=== PATIENT | male | born 1995 | race Caucasian/White ===

== ENCOUNTER 2023-12-05 20:24 | Inpatient (IN) ==
--- NOTE | 2023-12-05 21:17 | DR.GENAD ---
HPI Time Seen Time Seen by Provider: 12/05/23 21:15 PCP Primary Care Physician: addis Complaint/Symptoms Chief Complaint Doctors Comments: Patient had not exercised in 10 yrs and went to the gym on 12/02/2023 and worked on his arms for 1 hr. He states that on Saturday he went back to the gym and worked on his legs for an hr. Patient also took whey protein on Saturday and Saturday. Patient states for the past 1.5 days he has had swelling in his arms and spasm that prevented him from extending his arms. Patient's urine was dark today and he decided to present for evaluation. Patient has had: nausea,hot flashes. Patient denies: palpitations, weakness, syncope, sob, chest pain. Chief Complaint:: Pt states he started having a change in urine color to light brown last night. Pt states he worked out on Saturday and hasn't in over a year and thinks that may have something to do with it. Pt states he thinks he's had a fever, but has not taken his temperature. Pt states he's had some nausea, but states it could be "nervous nausea". Denies painful urination, burning with urination or abdominal pain. Source History Provided: Patient Mode of Arrival Mode of Arrival: Ambulatory Timing Onset of Chief Complaint: 12/04/23 PMH PMH Past Medical History: No Past Surgical History: No Family History History of Family Medical Conditions: Yes Family Medical History: [place] and Hypertension Social History Alcohol Use: None Do you use any recreational Drugs:: No Lives With: Family Lives Where: Home Infectious screening Have you traveled outside the country in the last 6 months?: No Isolation: Standard ROS Review of Systems Constitutional: Diaphoresis Eyes: No Symptoms Reported ENTM: No Symptoms Reported Respiratoy: No Symptoms Reported Cardiovascular: No Symptoms Reported Gastrointestinal/Abdominal: Nausea Genitourinary: No Symptoms Reported Neurological: No Symptoms Reported Musculoskeletal: No Symptoms Reported Integumentary: No Symptoms Reported Hematologic/Lymphatic: No Symptoms Reported Endocrine: No Symptoms Reported Psychiatric: No Symptoms Reported All Other Systems: Reviewed and Negative PE Vital Signs Vitals: Vital Signs Temperature 98.0 F Temperature 97.7 F Pulse Rate [Left Radial] 84 Pulse Rate 101 Respiratory Rate 20 Respiratory Rate 17 Blood Pressure [Left Arm] 121/84 Blood Pressure 135/92 O2 Sat by Pulse Oximetry 98 O2 Sat by Pulse Oximetry 96 General Limitations: No Limitations General Appearance: Alert and In No Apparent Distress Head Head Exam: Normal Inspection Eyes Eye exam: Normal Appearance ENT ENT Exam: Normal Exam External Ear Exam: Normal External Inspection TM/Canal Exam: Bilateral: Normal Nose Exam: Normal Nose Exam Mouth Exam: Normal Inspection Throat Exam: Normal Inspection Neck Neck Exam: Normal Inspection Chest Chest Inspection: Normal Inspection Respiratory Respiratory Exam: Normal Lung Sounds Bilat Respiratory Exam: Bilateral: Clear to Auscultation Cardiovascular Cardiovascular Exam: Regular Rate and Normal Rhythm Abdominal Exam Abdominal Exam: Normal Inspection, Normal Bowel Sounds and Soft Extremities Extremities Exam: Edema (Bilateral biceps) Back Back Exam: Normal Inspection Neurologic Neurological Exam: Alert and Oriented X3 Psychiatric Psychiatric Exam: Normal Affect and Normal Mood Skin Skin Exam: Warm, Dry, Intact and Normal Color MDM Differential Diagnosis Differential Diagnosis: Rhabdomyolysis, electrolyte disorder, Renal Failure COURSE Treatment Treatment: Patient was placed in an exam room and IV access was initiated. Labs and tests were ordered and patient received IV normal saline 1L bolus. After the bolus patient was given normal saline at 250 MLS per hour IV. Patient's labs and tests revealed: CK 91,149, AST 1230, ALT 271,K 4.3,mg 2.2. 11:[address] Raygoza. Dr Raygoza has accepted Patient to his service. ROR Labs Reviewed Laboratory Results Reviewed?: Yes 12/05/23 21:24 12/05/23 21:24 Laboratory: WBC 8.0 X10^3/uL (3.6-10.0) 12/05/23 21:24 RBC 5.14 X10^6/uL (4.7-6.0) 12/05/23 21:24 Hgb 16.1 g/dL (13.5-18.0) 12/05/23 21:24 Hct 45.5 % (42.0-54.0) 12/05/23 21:24 MCV 88.4 fL (80.0-100.0) 12/05/23 21:24 MCH 31.2 pg (27.0-34.0) 12/05/23 21:24 MCHC 35.3 g/dL (33.0-35.0) H 12/05/23 21:24 RDW 13.6 % (11.6-16.5) 12/05/23 21:24 Plt Count 232 X10^3/uL (150.0-450.0) 12/05/23 21:24 MPV 7.0 fL (7.4-11.0) L 12/05/23 21:24 Neut % (Auto) 65.5 % (42.0-75.0) 12/05/23 21:24 Lymph % (Auto) 26.1 % (21.0-51.0) 12/05/23 21:24 [place] % (Auto) 6.1 % (0.0-13.0) 12/05/23 21:24 Eos % (Auto) 1.6 % (0.9-2.9) 12/05/23 21:24 Baso % (Auto) 0.7 % (0.2-1.0) 12/05/23 21:24 Neut # (Auto) 5.2 x10^3/uL (2.2-4.8) H 12/05/23 21:24 Lymph # (Auto) 2.1 X10^3/uL (1.3-2.9) 12/05/23 21:24 [place] # (Auto) 0.5 x10^3/uL (0.3-0.8) 12/05/23 21:24 Eos # (Auto) 0.1 x10^3/uL (0.0-0.2) 12/05/23 21:24 Baso # (Auto) 0.1 X10^3/uL (0.0-0.1) 12/05/23 21:24 Absolute Nucleated RBC 0.4 /100WBC 12/05/23 21:24 Sodium 138 mmol/L (136-145) 12/05/23 21:24 Corrected Sodium 138 mmol/L (136-145) 12/05/23 21:24 Potassium 4.3 mmol/L (3.5-5.1) 12/05/23 21:24 Chloride 99 mmol/L (98-107) 12/05/23 21:24 Carbon Dioxide 31.4 mmol/L (21-32) 12/05/23 21:24 BUN 13 mg/dL (7-18) 12/05/23 21:24 Creatinine 1.27 mg/dL (0.70-1.30) 12/05/23 21:24 Est GFR (MDRD) Af Amer > 60 (>60) 12/05/23 21:24 Est GFR (MDRD) Non-Af > 60 (>60) 12/05/23 21:24 Glucose 114 mg/dL (65-99) H 12/05/23 21:24 Calcium 9.2 mg/dL (8.5-10.1) 12/05/23 21:24 Corrected Calcium TNP 12/05/23 21:24 Magnesium 2.2 mg/dL (2.0-2.9) 12/05/23 21:24 Total Bilirubin 0.60 mg/dL (0.2-1.0) 12/05/23 21:24 AST 1230 Units/L (15-37) H 12/05/23 21:24 ALT 271 Units/L (12-78) H 12/05/23 21:24 Alkaline Phosphatase 48 Units/L (46-116) 12/05/23 21:24 Creatine Kinase 31646 Units/L (39-308) H 12/05/23 21:24 Total Protein 7.7 g/dL (6.4-8.2) 12/05/23 21:24 Albumin 4.2 g/dL (3.4-5.0) 12/05/23 21:24 Globulin 3.5 g/dL (2.5-4.5) 12/05/23 21:24 Albumin/Globulin Ratio 1.2 Ratio (1.1-2.1) 12/05/23 21:24 Specimen Type Clean catch urine 12/05/23 21:03 Urine Color Yellow (YELLOW) 12/05/23 21:03 Urine Appearance Clear (CLEAR) 12/05/23 21:03 Urine pH 6.0 (5.0 - 8.0) 12/05/23 21:03 Ur Specific [place] 1.015 (1.000-1.030) 12/05/23 21:03 Urine Protein 2+ (NEGATIVE) 12/05/23 21:03 Urine Glucose (UA) Negative (NEGATIVE) 12/05/23 21:03 Urine Ketones Negative (NEGATIVE) 12/05/23 21:03 Urine Blood 5+ (NEGATIVE) 12/05/23 21:03 Urine Nitrite Negative (NEGATIVE) 12/05/23 21:03 Urine Bilirubin Negative (NEGATIVE) 12/05/23 21:03 Urine Urobilinogen Normal (NORMAL) 12/05/23 21:03 Ur Leukocyte Esterase Negative (NEGATIVE) 12/05/23 21:03 Urine RBC 0-2 /HPF (0-3) 12/05/23 21:03 Urine WBC 0-2 /HPF (0-5) 12/05/23 21:03 Ur Squamous Epith Cells Rare /HPF (NEGATIVE) 12/05/23 21:03 Urine Bacteria Negative /HPF (NEGATIVE) 12/05/23 21:03 Ur Culture Indicated? No/not indicated 12/05/23 21:03 Salicylates < 2.8 mg/dL (2.8-20) L 12/05/23 22:28 Urine Opiates Screen Negative (NEG=<300) 12/05/23 21:03 Urine Methadone Screen Negative (NEG=<300) 12/05/23 21:03 Ur Barbiturates Screen Negative (NEG=<200) 12/05/23 21:03 Ur Phencyclidine Scrn Negative (NEG=<25) 12/05/23 21:03 Ur Amphetamines Screen Negative (NEG=<1000) 12/05/23 21:03 U Benzodiazepines Scrn Negative (NEG=<200) 12/05/23 21:03 Urine Cocaine Screen Negative (NEG=<300) 12/05/23 21:03 U Marijuana (THC) Screen Negative (NEG=<50) 12/05/23 21:03 Opioid Opioid Risk Tool Total: 0 Total Score Risk Category: Low Risk Copyright: Bernard predicting aberrant behaviors Discharge Plan Diagnosis Discharge Problem: Rhabdomyolysis, Elevated liver function tests Discharge Plan Patient Disposition: ADMITTED INPATIENT Condition: Stable Health Concerns: Post Hospitalization: new medications and changes needed to prevent readmission or further decline. Pt educated and given instructions on all concerns. Plan of Treatment: Continue with present treatment and follow up plan. Pt is to keep follow up appointment as instructed and take medications as ordered. Orders to Discharge Patient Discharge Orders: Transfer (Routine); Ordered 12/06/23 Ordered By: Kesha Dyson Follow ups/Referrals Follow ups/Referrals: NFD,None [Primary Care Provider] - 3 days Instructions Stand Alone Forms: Post Hospital Follow Up Care
[2023-12-05 21:19] LABS: BILIRUBIN,URINE NEGATIVE (NEGATIVE); BLOOD/HEMOGLOBIN,URINE 5+ (NEGATIVE); GLUCOSE, URINE NEGATIVE (NEGATIVE); KETONES,URINE NEGATIVE (NEGATIVE); LEUKOCYTE ESTERASE ,URINE NEGATIVE (NEGATIVE); NITRITES,URINE NEGATIVE (NEGATIVE); PROTEIN,URINE 2+ (NEGATIVE); UROBILINOGEN,URINE NORMAL (NORMAL)
[2023-12-05 21:28] LABS: APPEARANCE,URINE CLEAR (CLEAR); COLOR,URINE YELLOW (YELLOW)
[2023-12-05 21:29] LABS: BACTERIA,URINE NEGATIVE /HPF (NEGATIVE); RBC,URINE 0-2 /HPF (0-3); SQUAMOUS EPITHELIAL CELL,UR RARE /HPF (NEGATIVE)
[2023-12-05 21:32] LABS: HEMOGLOBIN 16.1 g/dL (13.5-18.0); MEAN CORPUSCULAR HGB CONC 35.3 g/dL (33.0-35.0)
[2023-12-05 21:35] LABS: BASOPHILS # (AUTO) 0.1 X10^3/uL (0.0-0.1); BASOPHILS % (AUTO) 0.7 % (0.2-1.0); EOSINOPHILS # (AUTO) 0.1 x10^3/uL (0.0-0.2); EOSINOPHILS % (AUTO) 1.6 % (0.9-2.9); HEMATOCRIT 45.5 % (42.0-54.0); LYMPHOCYTES # (AUTO) 2.1 X10^3/uL (1.3-2.9); LYMPHOCYTES % (AUTO) 26.1 % (21.0-51.0); MEAN CORPUSCULAR HEMOGLOBIN 31.2 pg (27.0-34.0); MEAN CORPUSCULAR VOLUME 88.4 fL (80.0-100.0); MONOCYTES # (AUTO) 0.5 x10^3/uL (0.3-0.8); MONOCYTES % (AUTO) 6.1 % (0.0-13.0); NEUTROPHILS # (AUTO) 5.2 x10^3/uL (2.2-4.8); NEUTROPHILS % (AUTO) 65.5 % (42.0-75.0); PLATELET COUNT 232 X10^3/uL (150.0-450.0); RED BLOOD COUNT 5.14 X10^6/uL (4.7-6.0); RED CELL DISTRIBUTION WIDTH 13.6 % (11.6-16.5)
[2023-12-05 21:53] LABS: ALANINE AMINOTRANSFERASE 271 Units/L (12-78); ALBUMIN 4.2 g/dL (3.4-5.0); ALKALINE PHOSPHATASE 48 Units/L (46-116); BLOOD UREA NITROGEN 13 mg/dL (7-18); CALCIUM 9.2 mg/dL (8.5-10.1); CARBON DIOXIDE 31.4 mmol/L (21-32); CHLORIDE 99 mmol/L (98-107); COR NA(FOR HYPERGLY) 138 mmol/L (136-145); CREATININE 1.27 mg/dL (0.70-1.30); GLUCOSE 114 mg/dL (65-99); POTASSIUM 4.3 mmol/L (3.5-5.1); SODIUM 138 mmol/L (136-145); TOTAL PROTEIN 7.7 g/dL (6.4-8.2); eGFR NON BLACK RACES > 60 (>60)
[2023-12-05 21:57] LABS: ASPARTATE AMINO TRANSFERASE 1230 Units/L (15-37)
[2023-12-05] MEDS ORDERED: NS 1,000 ML IV 1,000 ML ONE (22:25)
[2023-12-05] MEDS: NS 1,000 ML IV 1,000 ML IV ONE (22:27)
[2023-12-05 23:26] LABS: CREATINE KINASE 91149 Units/L (39-308)
[2023-12-05] MEDS: NS 1,000 ML IV 1,000 ML IV STA (23:31)
[2023-12-06] MEDS ORDERED: REGLAN INJ 10 MG VIAL IVP PRN (00:45)
[2023-12-06 02:32] VITALS: BMI 25.0
[2023-12-06 05:04] LABS: BILIRUBIN,URINE NEGATIVE (NEGATIVE); BLOOD/HEMOGLOBIN,URINE 5+ (NEGATIVE); GLUCOSE, URINE NEGATIVE (NEGATIVE); KETONES,URINE NEGATIVE (NEGATIVE); LEUKOCYTE ESTERASE ,URINE NEGATIVE (NEGATIVE); NITRITES,URINE NEGATIVE (NEGATIVE); PH,URINE 6.5 (5.0 - 8.0); PROTEIN,URINE 1+ (NEGATIVE); UROBILINOGEN,URINE NORMAL (NORMAL)
[2023-12-06 05:14] LABS: APPEARANCE,URINE CLEAR (CLEAR); BACTERIA,URINE NEGATIVE /HPF (NEGATIVE); COLOR,URINE PALE YELLOW (YELLOW); RBC,URINE 0-2 /HPF (0-3); SQUAMOUS EPITHELIAL CELL,UR RARE /HPF (NEGATIVE)
[2023-12-06 06:23] LABS: BASOPHILS % (AUTO) 0.5 % (0.2-1.0); EOSINOPHILS # (AUTO) 0.2 x10^3/uL (0.0-0.2); EOSINOPHILS % (AUTO) 3.6 % (0.9-2.9); HEMATOCRIT 44.3 % (42.0-54.0); HEMOGLOBIN 15.4 g/dL (13.5-18.0); LYMPHOCYTES # (AUTO) 2.3 X10^3/uL (1.3-2.9); LYMPHOCYTES % (AUTO) 36.2 % (21.0-51.0); MEAN CORPUSCULAR HGB CONC 34.8 g/dL (33.0-35.0); MEAN CORPUSCULAR VOLUME 89.1 fL (80.0-100.0); MEAN PLATELET VOLUME 7.4 fL (7.4-11.0); MONOCYTES # (AUTO) 0.4 x10^3/uL (0.3-0.8); MONOCYTES % (AUTO) 6.8 % (0.0-13.0); NEUTROPHILS # (AUTO) 3.4 x10^3/uL (2.2-4.8); NEUTROPHILS % (AUTO) 52.9 % (42.0-75.0); PLATELET COUNT 222 X10^3/uL (150.0-450.0); RED BLOOD COUNT 4.97 X10^6/uL (4.7-6.0); RED CELL DISTRIBUTION WIDTH 13.7 % (11.6-16.5); WHITE BLOOD COUNT 6.4 X10^3/uL (3.6-10.0)
[2023-12-06 06:56] LABS: ALANINE AMINOTRANSFERASE 256 Units/L (12-78); ALBUMIN 3.8 g/dL (3.4-5.0); ALKALINE PHOSPHATASE 43 Units/L (46-116); ASPARTATE AMINO TRANSFERASE 978 Units/L (15-37); BLOOD UREA NITROGEN 10 mg/dL (7-18); CARBON DIOXIDE 31.5 mmol/L (21-32); CHLORIDE 101 mmol/L (98-107); GLUCOSE 96 mg/dL (65-99); POTASSIUM 4.6 mmol/L (3.5-5.1); SODIUM 139 mmol/L (136-145); TOTAL PROTEIN 7.2 g/dL (6.4-8.2); eGFR NON BLACK RACES > 60 (>60)
[2023-12-06 08:26] LABS: CREATINE KINASE 99184 Units/L (39-308)
[2023-12-06] MEDS: LR 1,000 ML IV 1,000 ML IV SCH (09:30)
--- NOTE | 2023-12-06 14:29 | DR.H&P ---
H&P History & Physical for Day of: H&P Date: 12/06/23 Chief Complaint Chief Complaint: Change in urine color History of Present Illness History of Present Illness: This is a pleasant 28-year-old white male who presented to the [facility] emergency department last night after he saw that his urine had started turning a light brown in color. He states that he had been working out at the gym earlier in the week or 2 days in a row. He had not worked out previously in 10 years he reports. On December 02, 2023, he worked on his arms for an hour, and the following day, he went back to the gym and worked on his legs for an hour. The patient also states he took whey protein on Saturday and Saturday. The patient reports that the day after he had worked out the second time, his arms started getting sore and looked like they were swelling. He had developed some nausea with hot flashes also. He denied palpitations, weakness, syncope, shortness of breath, and chest pain. He also denies painful urination and burning with urination and abdominal pain. The patient was found to have a CK level just above 91,000. I was called by the ER physician and the patient was discussed with me. We elected to go ahead and admit the patient to the hospital with continued IV fluid hydration for his rhabdomyolysis. This morning's repeat of his CK level shows that he has gone up to over 99,000. We are changing his IV fluid to lactated Ringer's at 200 cc an hour this morning. Repeat a CK level again tomorrow morning. Family History Family Medical History: [place] and Hypertension Social History Does patient currently use any type of tobacco product: No Does any household member use tobacco: No Alcohol Use: None Drug Use: None Medications Home Medications: Home Medications Medication Instructions Recorded Confirmed Type NK 12/06/23 12/06/23 History Allergies Allergies Allergy/AdvReac Type Severity Reaction Status Date / Time No Known Allergies Allergy Verified 12/06/23 04:24 Labs 12/06/23 05:40 12/06/23 05:40 Labs: Laboratory WBC 6.4 X10^3/uL (3.6-10.0) 12/06/23 05:40 RBC 4.97 X10^6/uL (4.7-6.0) 12/06/23 05:40 Hgb 15.4 g/dL (13.5-18.0) 12/06/23 05:40 Hct 44.3 % (42.0-54.0) 12/06/23 05:40 MCV 89.1 fL (80.0-100.0) 12/06/23 05:40 MCH 31.0 pg (27.0-34.0) 12/06/23 05:40 MCHC 34.8 g/dL (33.0-35.0) 12/06/23 05:40 RDW 13.7 % (11.6-16.5) 12/06/23 05:40 Plt Count 222 X10^3/uL (150.0-450.0) 12/06/23 05:40 MPV 7.4 fL (7.4-11.0) 12/06/23 05:40 Neut % (Auto) 52.9 % (42.0-75.0) 12/06/23 05:40 Lymph % (Auto) 36.2 % (21.0-51.0) 12/06/23 05:40 [place] % (Auto) 6.8 % (0.0-13.0) 12/06/23 05:40 Eos % (Auto) 3.6 % (0.9-2.9) H 12/06/23 05:40 Baso % (Auto) 0.5 % (0.2-1.0) 12/06/23 05:40 Neut # (Auto) 3.4 x10^3/uL (2.2-4.8) 12/06/23 05:40 Lymph # (Auto) 2.3 X10^3/uL (1.3-2.9) 12/06/23 05:40 [place] # (Auto) 0.4 x10^3/uL (0.3-0.8) 12/06/23 05:40 Eos # (Auto) 0.2 x10^3/uL (0.0-0.2) 12/06/23 05:40 Baso # (Auto) 0.0 X10^3/uL (0.0-0.1) 12/06/23 05:40 Absolute Nucleated RBC 0.1 /100WBC 12/06/23 05:40 Sodium 139 mmol/L (136-145) 12/06/23 05:40 Corrected Sodium TNP 12/06/23 05:40 Potassium 4.6 mmol/L (3.5-5.1) 12/06/23 05:40 Chloride 101 mmol/L (98-107) 12/06/23 05:40 Carbon Dioxide 31.5 mmol/L (21-32) 12/06/23 05:40 BUN 10 mg/dL (7-18) 12/06/23 05:40 Creatinine 1.10 mg/dL (0.70-1.30) 12/06/23 05:40 Est GFR (MDRD) Af Amer > 60 (>60) 12/06/23 05:40 Est GFR (MDRD) Non-Af > 60 (>60) 12/06/23 05:40 Glucose 96 mg/dL (65-99) 12/06/23 05:40 Calcium 9.0 mg/dL (8.5-10.1) 12/06/23 05:40 Corrected Calcium TNP 12/06/23 05:40 Magnesium 2.2 mg/dL (2.0-2.9) 12/05/23 21:24 Total Bilirubin 0.80 mg/dL (0.2-1.0) 12/06/23 05:40 AST 978 Units/L (15-37) H 12/06/23 05:40 ALT 256 Units/L (12-78) H 12/06/23 05:40 Alkaline Phosphatase 43 Units/L (46-116) L 12/06/23 05:40 Creatine Kinase 94927 Units/L (39-308) H 12/06/23 05:40 Total Protein 7.2 g/dL (6.4-8.2) 12/06/23 05:40 Albumin 3.8 g/dL (3.4-5.0) 12/06/23 05:40 Globulin 3.4 g/dL (2.5-4.5) 12/06/23 05:40 Albumin/Globulin Ratio 1.1 Ratio (1.1-2.1) 12/06/23 05:40 Specimen Type Random urine 12/06/23 04:02 Urine Color Pale yellow (YELLOW) 12/06/23 04:02 Urine Appearance Clear (CLEAR) 12/06/23 04:02 Urine pH 6.5 (5.0 - 8.0) 12/06/23 04:02 Ur Specific [place] 1.010 (1.000-1.030) 12/06/23 04:02 Urine Protein 1+ (NEGATIVE) 12/06/23 04:02 Urine Glucose (UA) Negative (NEGATIVE) 12/06/23 04:02 Urine Ketones Negative (NEGATIVE) 12/06/23 04:02 Urine Blood 5+ (NEGATIVE) 12/06/23 04:02 Urine Nitrite Negative (NEGATIVE) 12/06/23 04:02 Urine Bilirubin Negative (NEGATIVE) 12/06/23 04:02 Urine Urobilinogen Normal (NORMAL) 12/06/23 04:02 Ur Leukocyte Esterase Negative (NEGATIVE) 12/06/23 04:02 Urine RBC 0-2 /HPF (0-3) 12/06/23 04:02 Urine WBC 0-2 /HPF (0-5) 12/06/23 04:02 Ur Squamous Epith Cells Rare /HPF (NEGATIVE) 12/06/23 04:02 Urine Bacteria Negative /HPF (NEGATIVE) 12/06/23 04:02 Ur Culture Indicated? No/not indicated 12/06/23 04:02 Salicylates < 2.8 mg/dL (2.8-20) L 12/05/23 22:28 Urine Opiates Screen Negative (NEG=<300) 12/05/23 21:03 Urine Methadone Screen Negative (NEG=<300) 12/05/23 21:03 Ur Barbiturates Screen Negative (NEG=<200) 12/05/23 21:03 Ur Phencyclidine Scrn Negative (NEG=<25) 12/05/23 21:03 Ur Amphetamines Screen Negative (NEG=<1000) 12/05/23 21:03 U Benzodiazepines Scrn Negative (NEG=<200) 12/05/23 21:03 Urine Cocaine Screen Negative (NEG=<300) 12/05/23 21:03 U Marijuana (THC) Screen Negative (NEG=<50) 12/05/23 21:03 Review of Systems Constitutional: Fever, Sweats and Weakness Eyes: No Symptoms Reported ENT: No Symptoms Reported Respiratory: No Symptoms Reported Cardiovascular: No Symptoms Reported Gastrointestinal: Nausea Genitourinary: Other (Light brown-colored urine); denies Dysuria or Hematuria Musculoskeletal: Arm Pain Skin: No Symptoms Reported Neurological: No Symptoms Reported Physical Exam Vital Signs: Vital Signs Temperature 97.9 F Temperature 97.6 F Pulse Rate [Left Radial] 88 Pulse Rate [Left Radial] 91 Respiratory Rate 18 Respiratory Rate 18 Blood Pressure [Left Arm] 116/72 Blood Pressure [Left Arm] 125/85 O2 Sat by Pulse Oximetry 97 O2 Sat by Pulse Oximetry 95 Oriented: Normal, Time, Person and Place Eyes: Normal Ear: Normal Nose: Normal Throat: Normal Respiratory: Clear Throughout Cardiovascular: Normal : Normal Auscultation: Bowel Sounds: Normal Palpation: Normal Tenderness: Normal Skin: Normal Musculoskeletal: Right, Left, Arm (Bilateral biceps) and Tender Psychiatric: Normal Mood Description: Calm Affect: Normal Speech Pattern: Clear and Appropriate Assessment/Plan (1) Rhabdomyolysis: Status: Acute Plan: Lactated Ringer's at 200 cc an hour. Check daily CK levels. Follow LFTs to make sure they normalize. It is known that rhabdomyolysis can cause elevated LFTs especially AST greater than ALT. The patient does demonstrate this during this hospitalization. (2) Elevated liver function tests: Status: Acute Plan: Since admission, the patient's LFTs have improved. We will continue to follow them daily until they normalize. I see that the emergency room physician has ordered a hepatitis profile, and we will follow up with the results as well. Review H&P Reviewed: Yes Patient was examined?: Yes
[2023-12-07 06:40] LABS: BASOPHILS # (AUTO) 0.1 X10^3/uL (0.0-0.1); BASOPHILS % (AUTO) 1.1 % (0.2-1.0); EOSINOPHILS # (AUTO) 0.3 x10^3/uL (0.0-0.2); EOSINOPHILS % (AUTO) 4.6 % (0.9-2.9); HEMATOCRIT 42.9 % (42.0-54.0); HEMOGLOBIN 15.1 g/dL (13.5-18.0); LYMPHOCYTES # (AUTO) 2.3 X10^3/uL (1.3-2.9); LYMPHOCYTES % (AUTO) 35.5 % (21.0-51.0); MEAN CORPUSCULAR HEMOGLOBIN 31.3 pg (27.0-34.0); MEAN CORPUSCULAR HGB CONC 35.2 g/dL (33.0-35.0); MEAN PLATELET VOLUME 7.1 fL (7.4-11.0); MONOCYTES # (AUTO) 0.5 x10^3/uL (0.3-0.8); NEUTROPHILS # (AUTO) 3.3 x10^3/uL (2.2-4.8); NEUTROPHILS % (AUTO) 50.8 % (42.0-75.0); PLATELET COUNT 205 X10^3/uL (150.0-450.0); RED BLOOD COUNT 4.82 X10^6/uL (4.7-6.0); RED CELL DISTRIBUTION WIDTH 13.3 % (11.6-16.5); WHITE BLOOD COUNT 6.6 X10^3/uL (3.6-10.0)
[2023-12-07 06:55] LABS: ALANINE AMINOTRANSFERASE 232 Units/L (12-78); ALBUMIN 3.7 g/dL (3.4-5.0); ALKALINE PHOSPHATASE 39 Units/L (46-116); ASPARTATE AMINO TRANSFERASE 661 Units/L (15-37); BLOOD UREA NITROGEN 11 mg/dL (7-18); CALCIUM 9.2 mg/dL (8.5-10.1); CARBON DIOXIDE 34.2 mmol/L (21-32); CHLORIDE 102 mmol/L (98-107); CREATININE 1.14 mg/dL (0.70-1.30); GLUCOSE 95 mg/dL (65-99); POTASSIUM 4.4 mmol/L (3.5-5.1); SODIUM 139 mmol/L (136-145); eGFR NON BLACK RACES > 60 (>60)
[2023-12-07 07:36] LABS: CREATINE KINASE 48715 Units/L (39-308)
[2023-12-07] MEDS ORDERED: CONSULT PHARMACY - POTASSIUM & MAGNESIUM XX SCH (09:00)
[2023-12-07] MEDS: MAG-OX TAB PO SCH (09:59)
--- NOTE | 2023-12-07 12:31 | PCM.PROG ---
Progress Note Progress Note for Day of Date of Exam: 12/07/23 Subjective Subjective: Patient seen at bedside, no acute events overnight. He is currently admitted for rhabdomyolysis and transaminitis. He states he feels better. He has been ambulating in the room. He is able to move his arms and legs. His CK levels are trending down. Denies any nausea or vomiting. Labs and imaging reviewed: -Total CK 48,715 AST: 661 ALT: 232 magnesium 1.7 Plan: Continue aggressive hydration with LR, replace electrolytes as per protocol. Monitor a.m. labs and imaging. Encourage ambulation as tolerated. Past Medical Family Social History Allergies: Allergies No Known Allergies Allergy (Verified 12/06/23 04:24) Vital Signs and I&O's Vital Signs: Vital Signs Temperature 97.2 F Pulse Rate [Left Radial] 82 Respiratory Rate 17 Blood Pressure [Right Arm] 124/66 O2 Sat by Pulse Oximetry 98 Intake and Output: Intake & Output 12/04/23 12/05/23 12/06/23 12/07/23 23:59 23:59 23:59 23:59 Intake Total 5191 / 5191 1463 / 1463 Balance 5191 / 5191 1463 / 1463 Physical Exam Oriented: Normal, Time, Person and Place Eyes: Normal Ear: Normal Nose: Normal Throat: Normal Respiratory: Normal Cardiovascular: Normal : Normal Auscultation: Bowel Sounds: Normal Palpation: Normal Tenderness: Normal Skin: Normal Musculoskeletal: Right, Left, Arm (Bilateral biceps) and Tender Psychiatric: Normal Mood Description: Calm Affect: Normal Speech Pattern: Clear and Appropriate Laboratory and Diagnostics 12/07/23 06:09 12/07/23 06:09 Labs: Laboratory WBC 6.6 X10^3/uL (3.6-10.0) 12/07/23 06:09 RBC 4.82 X10^6/uL (4.7-6.0) 12/07/23 06:09 Hgb 15.1 g/dL (13.5-18.0) 12/07/23 06:09 Hct 42.9 % (42.0-54.0) 12/07/23 06:09 MCV 89.0 fL (80.0-100.0) 12/07/23 06:09 MCH 31.3 pg (27.0-34.0) 12/07/23 06:09 MCHC 35.2 g/dL (33.0-35.0) H 12/07/23 06:09 RDW 13.3 % (11.6-16.5) 12/07/23 06:09 Plt Count 205 X10^3/uL (150.0-450.0) 12/07/23 06:09 MPV 7.1 fL (7.4-11.0) L 12/07/23 06:09 Neut % (Auto) 50.8 % (42.0-75.0) 12/07/23 06:09 Lymph % (Auto) 35.5 % (21.0-51.0) 12/07/23 06:09 [place] % (Auto) 8.0 % (0.0-13.0) 12/07/23 06:09 Eos % (Auto) 4.6 % (0.9-2.9) H 12/07/23 06:09 Baso % (Auto) 1.1 % (0.2-1.0) H 12/07/23 06:09 Neut # (Auto) 3.3 x10^3/uL (2.2-4.8) 12/07/23 06:09 Lymph # (Auto) 2.3 X10^3/uL (1.3-2.9) 12/07/23 06:09 [place] # (Auto) 0.5 x10^3/uL (0.3-0.8) 12/07/23 06:09 Eos # (Auto) 0.3 x10^3/uL (0.0-0.2) H 12/07/23 06:09 Baso # (Auto) 0.1 X10^3/uL (0.0-0.1) 12/07/23 06:09 Absolute Nucleated RBC 0.2 /100WBC 12/07/23 06:09 Sodium 139 mmol/L (136-145) 12/07/23 06:09 Corrected Sodium TNP 12/07/23 06:09 Potassium 4.4 mmol/L (3.5-5.1) 12/07/23 06:09 Chloride 102 mmol/L (98-107) 12/07/23 06:09 Carbon Dioxide 34.2 mmol/L (21-32) H 12/07/23 06:09 BUN 11 mg/dL (7-18) 12/07/23 06:09 Creatinine 1.14 mg/dL (0.70-1.30) 12/07/23 06:09 Est GFR (MDRD) Af Amer > 60 (>60) 12/07/23 06:09 Est GFR (MDRD) Non-Af > 60 (>60) 12/07/23 06:09 Glucose 95 mg/dL (65-99) 12/07/23 06:09 Calcium 9.2 mg/dL (8.5-10.1) 12/07/23 06:09 Corrected Calcium TNP 12/07/23 06:09 Magnesium 1.7 mg/dL (2.0-2.9) L 12/07/23 06:09 Total Bilirubin 0.60 mg/dL (0.2-1.0) 12/07/23 06:09 AST 661 Units/L (15-37) H 12/07/23 06:09 ALT 232 Units/L (12-78) H 12/07/23 06:09 Alkaline Phosphatase 39 Units/L (46-116) L 12/07/23 06:09 Creatine Kinase 16617 Units/L (39-308) H 12/07/23 06:09 Total Protein 7.0 g/dL (6.4-8.2) 12/07/23 06:09 Albumin 3.7 g/dL (3.4-5.0) 12/07/23 06:09 Globulin 3.3 g/dL (2.5-4.5) 12/07/23 06:09 Albumin/Globulin Ratio 1.1 Ratio (1.1-2.1) 12/07/23 06:09 Specimen Type Random urine 12/06/23 04:02 Urine Color Pale yellow (YELLOW) 12/06/23 04:02 Urine Appearance Clear (CLEAR) 12/06/23 04:02 Urine pH 6.5 (5.0 - 8.0) 12/06/23 04:02 Ur Specific [place] 1.010 (1.000-1.030) 12/06/23 04:02 Urine Protein 1+ (NEGATIVE) 12/06/23 04:02 Urine Glucose (UA) Negative (NEGATIVE) 12/06/23 04:02 Urine Ketones Negative (NEGATIVE) 12/06/23 04:02 Urine Blood 5+ (NEGATIVE) 12/06/23 04:02 Urine Nitrite Negative (NEGATIVE) 12/06/23 04:02 Urine Bilirubin Negative (NEGATIVE) 12/06/23 04:02 Urine Urobilinogen Normal (NORMAL) 12/06/23 04:02 Ur Leukocyte Esterase Negative (NEGATIVE) 12/06/23 04:02 Urine RBC 0-2 /HPF (0-3) 12/06/23 04:02 Urine WBC 0-2 /HPF (0-5) 12/06/23 04:02 Ur Squamous Epith Cells Rare /HPF (NEGATIVE) 12/06/23 04:02 Urine Bacteria Negative /HPF (NEGATIVE) 12/06/23 04:02 Ur Culture Indicated? No/not indicated 12/06/23 04:02 Salicylates < 2.8 mg/dL (2.8-20) L 12/05/23 22:28 Urine Opiates Screen Negative (NEG=<300) 12/05/23 21:03 Urine Methadone Screen Negative (NEG=<300) 12/05/23 21:03 Ur Barbiturates Screen Negative (NEG=<200) 12/05/23 21:03 Ur Phencyclidine Scrn Negative (NEG=<25) 12/05/23 21:03 Ur Amphetamines Screen Negative (NEG=<1000) 12/05/23 21:03 U Benzodiazepines Scrn Negative (NEG=<200) 12/05/23 21:03 Urine Cocaine Screen Negative (NEG=<300) 12/05/23 21:03 U Marijuana (THC) Screen Negative (NEG=<50) 12/05/23 21:03 Plan (1) Rhabdomyolysis: Status: Acute Qualifiers: Rhabdomyolysis type: non-traumatic Qualified Code(s): M62.82 - Rhabdomyolysis (2) Elevated liver function tests: Status: Acute
[2023-12-07] MEDS: NS 1,000 ML IV 1,000 ML ONE (22:48)
[2023-12-08 06:41] LABS: BASOPHILS # (AUTO) 0.1 X10^3/uL (0.0-0.1); BASOPHILS % (AUTO) 1.9 % (0.2-1.0); EOSINOPHILS # (AUTO) 0.3 x10^3/uL (0.0-0.2); EOSINOPHILS % (AUTO) 4.3 % (0.9-2.9); HEMATOCRIT 40.8 % (42.0-54.0); HEMOGLOBIN 14.5 g/dL (13.5-18.0); LYMPHOCYTES # (AUTO) 1.6 X10^3/uL (1.3-2.9); LYMPHOCYTES % (AUTO) 27.8 % (21.0-51.0); MEAN CORPUSCULAR HEMOGLOBIN 31.5 pg (27.0-34.0); MEAN CORPUSCULAR HGB CONC 35.7 g/dL (33.0-35.0); MEAN CORPUSCULAR VOLUME 88.3 fL (80.0-100.0); MEAN PLATELET VOLUME 7.1 fL (7.4-11.0); MONOCYTES # (AUTO) 0.4 x10^3/uL (0.3-0.8); MONOCYTES % (AUTO) 6.6 % (0.0-13.0); NEUTROPHILS # (AUTO) 3.5 x10^3/uL (2.2-4.8); NEUTROPHILS % (AUTO) 59.4 % (42.0-75.0); PLATELET COUNT 205 X10^3/uL (150.0-450.0); RED BLOOD COUNT 4.62 X10^6/uL (4.7-6.0); RED CELL DISTRIBUTION WIDTH 13.9 % (11.6-16.5); WHITE BLOOD COUNT 5.8 X10^3/uL (3.6-10.0)
[2023-12-08 07:06] LABS: ALANINE AMINOTRANSFERASE 224 Units/L (12-78); ALBUMIN 3.5 g/dL (3.4-5.0); ALKALINE PHOSPHATASE 43 Units/L (46-116); ASPARTATE AMINO TRANSFERASE 528 Units/L (15-37); BLOOD UREA NITROGEN 12 mg/dL (7-18); CALCIUM 8.8 mg/dL (8.5-10.1); CARBON DIOXIDE 32.2 mmol/L (21-32); CHLORIDE 103 mmol/L (98-107); CREATININE 1.07 mg/dL (0.70-1.30); GLUCOSE 90 mg/dL (65-99); POTASSIUM 3.9 mmol/L (3.5-5.1); SODIUM 140 mmol/L (136-145); TOTAL PROTEIN 6.7 g/dL (6.4-8.2); eGFR NON BLACK RACES > 60 (>60)
[2023-12-08 07:25] LABS: CREATINE KINASE 37354 Units/L (39-308)
[2023-12-08 07:54] LABS: HEPATITIS B SURFACE ANTIGEN Negative (Negative)
--- NOTE | 2023-12-08 11:45 | PCM.PROG ---
Progress Note Progress Note for Day of Date of Exam: 12/08/23 Subjective Subjective: Patient seen at bedside, no acute events overnight. He is currently admitted for rhabdomyolysis and transaminitis. He states he feels better. He has been ambulating in the room. He is able to move his arms and legs. His CK levels are trending down. Denies any nausea or vomiting. Labs and imaging reviewed: -Total CK 37 354 AST: 528 ALT: 224 magnesium 2.0 Plan: Continue aggressive hydration with LR, Will give 1 L bolus now. Replace electrolytes as per protocol. Monitor a.m. labs and imaging. Encourage ambulation as tolerated. Past Medical Family Social History Allergies: Allergies No Known Allergies Allergy (Verified 12/06/23 04:24) Vital Signs and I&O's Vital Signs: Vital Signs Temperature 97.7 F Temperature 97.6 F Pulse Rate [Left Radial] 70 Pulse Rate [Left Radial] 80 Respiratory Rate 20 Respiratory Rate 18 Blood Pressure [Right Arm] 117/68 Blood Pressure [Right Arm] 122/65 O2 Sat by Pulse Oximetry 98 O2 Sat by Pulse Oximetry 97 Intake and Output: Intake & Output 12/05/23 12/06/23 12/07/23 12/08/23 23:59 23:59 23:59 23:59 Intake Total 5191 / 5191 7265 / 7265 2113 Balance 5191 / 5191 7265 / 7265 2113 Physical Exam Oriented: Normal, Time, Person and Place Eyes: Normal Ear: Normal Nose: Normal Throat: Normal Respiratory: Normal Cardiovascular: Normal Auscultation: Bowel Sounds: Normal Palpation: Normal Tenderness: Normal Skin: Normal Musculoskeletal: Right, Left, Arm (Bilateral biceps) and Tender Psychiatric: Normal Mood Description: Calm Affect: Normal Speech Pattern: Clear and Appropriate Laboratory and Diagnostics 12/08/23 06:10 12/08/23 06:10 Labs: Laboratory WBC 5.8 X10^3/uL (3.6-10.0) 12/08/23 06:10 RBC 4.62 X10^6/uL (4.7-6.0) L 12/08/23 06:10 Hgb 14.5 g/dL (13.5-18.0) 12/08/23 06:10 Hct 40.8 % (42.0-54.0) L 12/08/23 06:10 MCV 88.3 fL (80.0-100.0) 12/08/23 06:10 MCH 31.5 pg (27.0-34.0) 12/08/23 06:10 MCHC 35.7 g/dL (33.0-35.0) H 12/08/23 06:10 RDW 13.9 % (11.6-16.5) 12/08/23 06:10 Plt Count 205 X10^3/uL (150.0-450.0) 12/08/23 06:10 MPV 7.1 fL (7.4-11.0) L 12/08/23 06:10 Neut % (Auto) 59.4 % (42.0-75.0) 12/08/23 06:10 Lymph % (Auto) 27.8 % (21.0-51.0) 12/08/23 06:10 [place] % (Auto) 6.6 % (0.0-13.0) 12/08/23 06:10 Eos % (Auto) 4.3 % (0.9-2.9) H 12/08/23 06:10 Baso % (Auto) 1.9 % (0.2-1.0) H 12/08/23 06:10 Neut # (Auto) 3.5 x10^3/uL (2.2-4.8) 12/08/23 06:10 Lymph # (Auto) 1.6 X10^3/uL (1.3-2.9) 12/08/23 06:10 [place] # (Auto) 0.4 x10^3/uL (0.3-0.8) 12/08/23 06:10 Eos # (Auto) 0.3 x10^3/uL (0.0-0.2) H 12/08/23 06:10 Baso # (Auto) 0.1 X10^3/uL (0.0-0.1) 12/08/23 06:10 Absolute Nucleated RBC 0.1 /100WBC 12/08/23 06:10 Sodium 140 mmol/L (136-145) 12/08/23 06:10 Corrected Sodium TNP 12/08/23 06:10 Potassium 3.9 mmol/L (3.5-5.1) 12/08/23 06:10 Chloride 103 mmol/L (98-107) 12/08/23 06:10 Carbon Dioxide 32.2 mmol/L (21-32) H 12/08/23 06:10 BUN 12 mg/dL (7-18) 12/08/23 06:10 Creatinine 1.07 mg/dL (0.70-1.30) 12/08/23 06:10 Est GFR (MDRD) Af Amer > 60 (>60) 12/08/23 06:10 Est GFR (MDRD) Non-Af > 60 (>60) 12/08/23 06:10 Glucose 90 mg/dL (65-99) 12/08/23 06:10 Calcium 8.8 mg/dL (8.5-10.1) 12/08/23 06:10 Corrected Calcium TNP 12/08/23 06:10 Magnesium 2.0 mg/dL (2.0-2.9) 12/08/23 06:10 Total Bilirubin 0.50 mg/dL (0.2-1.0) 12/08/23 06:10 AST 528 Units/L (15-37) H 12/08/23 06:10 ALT 224 Units/L (12-78) H 12/08/23 06:10 Alkaline Phosphatase 43 Units/L (46-116) L 12/08/23 06:10 Creatine Kinase 78759 Units/L (39-308) H 12/08/23 06:10 Total Protein 6.7 g/dL (6.4-8.2) 12/08/23 06:10 Albumin 3.5 g/dL (3.4-5.0) 12/08/23 06:10 Globulin 3.2 g/dL (2.5-4.5) 12/08/23 06:10 Albumin/Globulin Ratio 1.1 Ratio (1.1-2.1) 12/08/23 06:10 Specimen Type Random urine 12/06/23 04:02 Urine Color Pale yellow (YELLOW) 12/06/23 04:02 Urine Appearance Clear (CLEAR) 12/06/23 04:02 Urine pH 6.5 (5.0 - 8.0) 12/06/23 04:02 Ur Specific [place] 1.010 (1.000-1.030) 12/06/23 04:02 Urine Protein 1+ (NEGATIVE) 12/06/23 04:02 Urine Glucose (UA) Negative (NEGATIVE) 12/06/23 04:02 Urine Ketones Negative (NEGATIVE) 12/06/23 04:02 Urine Blood 5+ (NEGATIVE) 12/06/23 04:02 Urine Nitrite Negative (NEGATIVE) 12/06/23 04:02 Urine Bilirubin Negative (NEGATIVE) 12/06/23 04:02 Urine Urobilinogen Normal (NORMAL) 12/06/23 04:02 Ur Leukocyte Esterase Negative (NEGATIVE) 12/06/23 04:02 Urine RBC 0-2 /HPF (0-3) 12/06/23 04:02 Urine WBC 0-2 /HPF (0-5) 12/06/23 04:02 Ur Squamous Epith Cells Rare /HPF (NEGATIVE) 12/06/23 04:02 Urine Bacteria Negative /HPF (NEGATIVE) 12/06/23 04:02 Ur Culture Indicated? No/not indicated 12/06/23 04:02 Salicylates < 2.8 mg/dL (2.8-20) L 12/05/23 22:28 Urine Opiates Screen Negative (NEG=<300) 12/05/23 21:03 Urine Methadone Screen Negative (NEG=<300) 12/05/23 21:03 Ur Barbiturates Screen Negative (NEG=<200) 12/05/23 21:03 Ur Phencyclidine Scrn Negative (NEG=<25) 12/05/23 21:03 Ur Amphetamines Screen Negative (NEG=<1000) 12/05/23 21:03 U Benzodiazepines Scrn Negative (NEG=<200) 12/05/23 21:03 Urine Cocaine Screen Negative (NEG=<300) 12/05/23 21:03 U Marijuana (THC) Screen Negative (NEG=<50) 12/05/23 21:03 Hepatitis A IgM Ab Negative (Negative) 12/05/23 22:28 Hep Bs Antigen Negative (Negative) 12/05/23 22:28 Hep B Core IgM Ab Negative (Negative) 12/05/23 22:28 Hepatitis C Ab Index <0.02 IV 12/05/23 22:28 Hep C RIBA Interpret Negative (Negative) 12/05/23 22:28 Hepatitis Interpret See note 12/05/23 22:28 Plan (1) Rhabdomyolysis: Status: Acute Qualifiers: Rhabdomyolysis type: non-traumatic Qualified Code(s): M62.82 - Rhabdomyolysis Plan: Lactated Ringer's at 200 cc an hour. Check daily CK levels. Follow LFTs to make sure they normalize. It is known that rhabdomyolysis can cause elevated LFTs especially AST greater than ALT. The patient does demonstrate this during this hospitalization. (2) Elevated liver function tests: Status: Acute Plan: Since admission, the patient's LFTs have improved. We will continue to follow them daily until they normalize. I see that the emergency room physician has ordered a hepatitis profile, and we will follow up with the results as well. (3) Hypomagnesemia: Status: Acute
[2023-12-08] MEDS: LR 1,000 ML IV 1,000 ML IV ONE (12:14)
[2023-12-09 06:14] LABS: MEAN CORPUSCULAR HEMOGLOBIN 31.3 pg (27.0-34.0); WHITE BLOOD COUNT 6.2 X10^3/uL (3.6-10.0)
[2023-12-09 06:24] LABS: BASOPHILS % (AUTO) 0.7 % (0.2-1.0); EOSINOPHILS # (AUTO) 0.3 x10^3/uL (0.0-0.2); HEMOGLOBIN 15.1 g/dL (13.5-18.0); LYMPHOCYTES % (AUTO) 33.1 % (21.0-51.0); MEAN CORPUSCULAR HGB CONC 35.1 g/dL (33.0-35.0); MEAN CORPUSCULAR VOLUME 89.2 fL (80.0-100.0); MONOCYTES # (AUTO) 0.5 x10^3/uL (0.3-0.8); MONOCYTES % (AUTO) 7.3 % (0.0-13.0); NEUTROPHILS # (AUTO) 3.3 x10^3/uL (2.2-4.8); NEUTROPHILS % (AUTO) 53.9 % (42.0-75.0); PLATELET COUNT 213 X10^3/uL (150.0-450.0); RED BLOOD COUNT 4.83 X10^6/uL (4.7-6.0); RED CELL DISTRIBUTION WIDTH 13.5 % (11.6-16.5)
[2023-12-09 06:36] LABS: ALANINE AMINOTRANSFERASE 201 Units/L (12-78); ALBUMIN 3.5 g/dL (3.4-5.0); ALKALINE PHOSPHATASE 44 Units/L (46-116); ASPARTATE AMINO TRANSFERASE 335 Units/L (15-37); BLOOD UREA NITROGEN 8 mg/dL (7-18); CALCIUM 8.9 mg/dL (8.5-10.1); CHLORIDE 102 mmol/L (98-107); CREATININE 1.09 mg/dL (0.70-1.30); GLUCOSE 90 mg/dL (65-99); POTASSIUM 4.1 mmol/L (3.5-5.1); SODIUM 140 mmol/L (136-145); TOTAL PROTEIN 6.7 g/dL (6.4-8.2); eGFR NON BLACK RACES > 60 (>60)
--- NOTE | 2023-12-09 19:37 | PCM.PROG ---
Progress Note Progress Note for Day of Date of Exam: 12/09/23 Subjective Subjective: The patient had a good weekend and a good night again. He is still being treated for rhabdomyolysis. His CK level is now at 16,000. He has trended down since admission from a maximum of 99,000. We will continue IV fluid at this time and repeat his LFTs and CK level again tomorrow. His LFTs were elevated upon admission, but they are still trending down. Past Medical Family Social History Allergies: Allergies No Known Allergies Allergy (Verified 12/06/23 04:24) Review of Systems ROS: No change since H&P Vital Signs and I&O's Vital Signs: Vital Signs Temperature 97.1 F Temperature 97.6 F Pulse Rate [Left Radial] 55 Pulse Rate [Left Radial] 90 Respiratory Rate 19 Respiratory Rate 18 Blood Pressure [Right Arm] 119/60 Blood Pressure [Right Arm] 123/73 O2 Sat by Pulse Oximetry 96 O2 Sat by Pulse Oximetry 93 Intake and Output: Intake & Output 12/07/23 12/08/23 12/09/23 12/10/23 11:59 11:59 11:59 11:59 Intake Total 6644 / 6644 7916 / 7916 8593 / 8593 500 / 500 Balance 6644 / 6644 7916 / 7916 8593 / 8593 500 / 500 Physical Exam Oriented: Normal, Time, Person and Place Eyes: Normal Ear: Normal Nose: Normal Throat: Normal Respiratory: Normal Cardiovascular: Normal : Normal Auscultation: Bowel Sounds: Normal Tenderness: Normal Skin: Normal Musculoskeletal: Right, Left, Arm (Bilateral biceps) and Tender Psychiatric: Normal Mood Description: Calm Affect: Normal Speech Pattern: Clear and Appropriate Laboratory and Diagnostics 12/09/23 05:54 12/09/23 05:54 Labs: Laboratory WBC 6.2 X10^3/uL (3.6-10.0) 12/09/23 05:54 RBC 4.83 X10^6/uL (4.7-6.0) 12/09/23 05:54 Hgb 15.1 g/dL (13.5-18.0) 12/09/23 05:54 Hct 43.0 % (42.0-54.0) 12/09/23 05:54 MCV 89.2 fL (80.0-100.0) 12/09/23 05:54 MCH 31.3 pg (27.0-34.0) 12/09/23 05:54 MCHC 35.1 g/dL (33.0-35.0) H 12/09/23 05:54 RDW 13.5 % (11.6-16.5) 12/09/23 05:54 Plt Count 213 X10^3/uL (150.0-450.0) 12/09/23 05:54 MPV 7.0 fL (7.4-11.0) L 12/09/23 05:54 Neut % (Auto) 53.9 % (42.0-75.0) 12/09/23 05:54 Lymph % (Auto) 33.1 % (21.0-51.0) 12/09/23 05:54 [place] % (Auto) 7.3 % (0.0-13.0) 12/09/23 05:54 Eos % (Auto) 5.0 % (0.9-2.9) H 12/09/23 05:54 Baso % (Auto) 0.7 % (0.2-1.0) 12/09/23 05:54 Neut # (Auto) 3.3 x10^3/uL (2.2-4.8) 12/09/23 05:54 Lymph # (Auto) 2.0 X10^3/uL (1.3-2.9) 12/09/23 05:54 [place] # (Auto) 0.5 x10^3/uL (0.3-0.8) 12/09/23 05:54 Eos # (Auto) 0.3 x10^3/uL (0.0-0.2) H 12/09/23 05:54 Baso # (Auto) 0.0 X10^3/uL (0.0-0.1) 12/09/23 05:54 Absolute Nucleated RBC 0.1 /100WBC 12/09/23 05:54 Sodium 140 mmol/L (136-145) 12/09/23 05:54 Corrected Sodium TNP 12/09/23 05:54 Potassium 4.1 mmol/L (3.5-5.1) 12/09/23 05:54 Chloride 102 mmol/L (98-107) 12/09/23 05:54 Carbon Dioxide 32.0 mmol/L (21-32) 12/09/23 05:54 BUN 8 mg/dL (7-18) 12/09/23 05:54 Creatinine 1.09 mg/dL (0.70-1.30) 12/09/23 05:54 Est GFR (MDRD) Af Amer > 60 (>60) 12/09/23 05:54 Est GFR (MDRD) Non-Af > 60 (>60) 12/09/23 05:54 Glucose 90 mg/dL (65-99) 12/09/23 05:54 Calcium 8.9 mg/dL (8.5-10.1) 12/09/23 05:54 Corrected Calcium TNP 12/09/23 05:54 Magnesium 2.0 mg/dL (2.0-2.9) 12/08/23 06:10 Total Bilirubin 0.40 mg/dL (0.2-1.0) 12/09/23 05:54 AST 335 Units/L (15-37) H 12/09/23 05:54 ALT 201 Units/L (12-78) H 12/09/23 05:54 Alkaline Phosphatase 44 Units/L (46-116) L 12/09/23 05:54 Creatine Kinase 97441 Units/L (39-308) H 12/09/23 05:54 Total Protein 6.7 g/dL (6.4-8.2) 12/09/23 05:54 Albumin 3.5 g/dL (3.4-5.0) 12/09/23 05:54 Globulin 3.2 g/dL (2.5-4.5) 12/09/23 05:54 Albumin/Globulin Ratio 1.1 Ratio (1.1-2.1) 12/09/23 05:54 Specimen Type Random urine 12/06/23 04:02 Urine Color Pale yellow (YELLOW) 12/06/23 04:02 Urine Appearance Clear (CLEAR) 12/06/23 04:02 Urine pH 6.5 (5.0 - 8.0) 12/06/23 04:02 Ur Specific [place] 1.010 (1.000-1.030) 12/06/23 04:02 Urine Protein 1+ (NEGATIVE) 12/06/23 04:02 Urine Glucose (UA) Negative (NEGATIVE) 12/06/23 04:02 Urine Ketones Negative (NEGATIVE) 12/06/23 04:02 Urine Blood 5+ (NEGATIVE) 12/06/23 04:02 Urine Nitrite Negative (NEGATIVE) 12/06/23 04:02 Urine Bilirubin Negative (NEGATIVE) 12/06/23 04:02 Urine Urobilinogen Normal (NORMAL) 12/06/23 04:02 Ur Leukocyte Esterase Negative (NEGATIVE) 12/06/23 04:02 Urine RBC 0-2 /HPF (0-3) 12/06/23 04:02 Urine WBC 0-2 /HPF (0-5) 12/06/23 04:02 Ur Squamous Epith Cells Rare /HPF (NEGATIVE) 12/06/23 04:02 Urine Bacteria Negative /HPF (NEGATIVE) 12/06/23 04:02 Ur Culture Indicated? No/not indicated 12/06/23 04:02 Salicylates < 2.8 mg/dL (2.8-20) L 12/05/23 22:28 Urine Opiates Screen Negative (NEG=<300) 12/05/23 21:03 Urine Methadone Screen Negative (NEG=<300) 12/05/23 21:03 Ur Barbiturates Screen Negative (NEG=<200) 12/05/23 21:03 Ur Phencyclidine Scrn Negative (NEG=<25) 12/05/23 21:03 Ur Amphetamines Screen Negative (NEG=<1000) 12/05/23 21:03 U Benzodiazepines Scrn Negative (NEG=<200) 12/05/23 21:03 Urine Cocaine Screen Negative (NEG=<300) 12/05/23 21:03 U Marijuana (THC) Screen Negative (NEG=<50) 12/05/23 21:03 Hepatitis A IgM Ab Negative (Negative) 12/05/23 22:28 Hep Bs Antigen Negative (Negative) 12/05/23 22:28 Hep B Core IgM Ab Negative (Negative) 12/05/23 22:28 Hepatitis C Ab Index <0.02 IV 12/05/23 22:28 Hep C RIBA Interpret Negative (Negative) 12/05/23 22:28 Hepatitis Interpret See note 12/05/23 22:28 Plan (1) Rhabdomyolysis: Status: Acute Qualifiers: Rhabdomyolysis type: non-traumatic Qualified Code(s): M62.82 - Rhabdomyolysis Plan: Lactated Ringer's at 200 cc an hour. Check daily CK levels. Follow LFTs to make sure they normalize. It is known that rhabdomyolysis can cause elevated LFTs especially AST greater than ALT. The patient does demonstrate this during this hospitalization. (2) Elevated liver function tests: Status: Acute Plan: Since admission, the patient's LFTs have improved. We will continue to follow them daily until they normalize. I see that the emergency room physician has ordered a hepatitis profile, and we will follow up with the results as well. (3) Hypomagnesemia: Status: Acute
[2023-12-10 05:32] LABS: ALANINE AMINOTRANSFERASE 170 Units/L (12-78); ALBUMIN 3.4 g/dL (3.4-5.0); ALKALINE PHOSPHATASE 38 Units/L (46-116); ASPARTATE AMINO TRANSFERASE 211 Units/L (15-37); BLOOD UREA NITROGEN 9 mg/dL (7-18); CALCIUM 8.8 mg/dL (8.5-10.1); CARBON DIOXIDE 32.2 mmol/L (21-32); CHLORIDE 103 mmol/L (98-107); CREATININE 1.11 mg/dL (0.70-1.30); GLUCOSE 91 mg/dL (65-99); POTASSIUM 4.3 mmol/L (3.5-5.1); SODIUM 139 mmol/L (136-145); TOTAL PROTEIN 6.4 g/dL (6.4-8.2); eGFR NON BLACK RACES > 60 (>60)
[2023-12-10 05:48] LABS: CREATINE KINASE 9190 Units/L (39-308)
--- NOTE | 2023-12-10 16:46 | PCM.PROG ---
Progress Note Progress Note for Day of Date of Exam: 12/10/23 Subjective Subjective: The patient is feeling well this morning. His CK is down to just over 9000 today. He was greater than 16,000 yesterday so he is improving daily. We plan on keeping him another 24 hours. I suspect that his CK will be low enough tomorrow morning for us to transfer home. The patient has no complaints today, and he is eating well and ambulating without any trouble. His soreness in his biceps is decreasing and I talked to him about make sure when he gets back to working out to go back into it slowly and not overdo it. The patient understands this. The patient's LFTs continue to decrease also however they are still elevated so we will continue to monitor him as well. Repeat CMP with CK tomorrow. Continue lactated Ringer's IV solution at this time. Past Medical Family Social History Allergies: Allergies No Known Allergies Allergy (Verified 12/06/23 04:24) Review of Systems ROS: No change since H&P Vital Signs and I&O's Vital Signs: Vital Signs Temperature 97.8 F Pulse Rate [Left Radial] 72 Respiratory Rate 18 Blood Pressure [Left Arm] 118/72 O2 Sat by Pulse Oximetry 98 Intake and Output: Intake & Output 12/08/23 12/09/23 12/10/23 12/11/23 11:59 11:59 11:59 11:59 Intake Total 7916 / 7916 9393 / 9393 5724 / 5724 640 / 640 Balance 7916 / 7916 9393 / 9393 5724 / 5724 640 / 640 Physical Exam Oriented: Normal, Time, Person and Place Eyes: Normal Ear: Normal Nose: Normal Throat: Normal Respiratory: Normal Cardiovascular: Normal : Normal Auscultation: Bowel Sounds: Normal Tenderness: Normal Skin: Normal Musculoskeletal: Right, Left, Arm (Bilateral biceps) and Tender Psychiatric: Normal Mood Description: Calm Affect: Normal Speech Pattern: Clear and Appropriate Laboratory and Diagnostics 12/09/23 05:54 12/10/23 04:43 Labs: Laboratory WBC 6.2 X10^3/uL (3.6-10.0) 12/09/23 05:54 RBC 4.83 X10^6/uL (4.7-6.0) 12/09/23 05:54 Hgb 15.1 g/dL (13.5-18.0) 12/09/23 05:54 Hct 43.0 % (42.0-54.0) 12/09/23 05:54 MCV 89.2 fL (80.0-100.0) 12/09/23 05:54 MCH 31.3 pg (27.0-34.0) 12/09/23 05:54 MCHC 35.1 g/dL (33.0-35.0) H 12/09/23 05:54 RDW 13.5 % (11.6-16.5) 12/09/23 05:54 Plt Count 213 X10^3/uL (150.0-450.0) 12/09/23 05:54 MPV 7.0 fL (7.4-11.0) L 12/09/23 05:54 Neut % (Auto) 53.9 % (42.0-75.0) 12/09/23 05:54 Lymph % (Auto) 33.1 % (21.0-51.0) 12/09/23 05:54 [place] % (Auto) 7.3 % (0.0-13.0) 12/09/23 05:54 Eos % (Auto) 5.0 % (0.9-2.9) H 12/09/23 05:54 Baso % (Auto) 0.7 % (0.2-1.0) 12/09/23 05:54 Neut # (Auto) 3.3 x10^3/uL (2.2-4.8) 12/09/23 05:54 Lymph # (Auto) 2.0 X10^3/uL (1.3-2.9) 12/09/23 05:54 [place] # (Auto) 0.5 x10^3/uL (0.3-0.8) 12/09/23 05:54 Eos # (Auto) 0.3 x10^3/uL (0.0-0.2) H 12/09/23 05:54 Baso # (Auto) 0.0 X10^3/uL (0.0-0.1) 12/09/23 05:54 Absolute Nucleated RBC 0.1 /100WBC 12/09/23 05:54 Sodium 139 mmol/L (136-145) 12/10/23 04:43 Corrected Sodium TNP 12/10/23 04:43 Potassium 4.3 mmol/L (3.5-5.1) 12/10/23 04:43 Chloride 103 mmol/L (98-107) 12/10/23 04:43 Carbon Dioxide 32.2 mmol/L (21-32) H 12/10/23 04:43 BUN 9 mg/dL (7-18) 12/10/23 04:43 Creatinine 1.11 mg/dL (0.70-1.30) 12/10/23 04:43 Est GFR (MDRD) Af Amer > 60 (>60) 12/10/23 04:43 Est GFR (MDRD) Non-Af > 60 (>60) 12/10/23 04:43 Glucose 91 mg/dL (65-99) 12/10/23 04:43 Calcium 8.8 mg/dL (8.5-10.1) 12/10/23 04:43 Corrected Calcium TNP 12/10/23 04:43 Magnesium 2.0 mg/dL (2.0-2.9) 12/08/23 06:10 Total Bilirubin 0.40 mg/dL (0.2-1.0) 12/10/23 04:43 AST 211 Units/L (15-37) H 12/10/23 04:43 ALT 170 Units/L (12-78) H 12/10/23 04:43 Alkaline Phosphatase 38 Units/L (46-116) L 12/10/23 04:43 Creatine Kinase 9190 Units/L (39-308) H 12/10/23 04:43 Total Protein 6.4 g/dL (6.4-8.2) 12/10/23 04:43 Albumin 3.4 g/dL (3.4-5.0) 12/10/23 04:43 Globulin 3.0 g/dL (2.5-4.5) 12/10/23 04:43 Albumin/Globulin Ratio 1.1 Ratio (1.1-2.1) 12/10/23 04:43 Specimen Type Random urine 12/06/23 04:02 Urine Color Pale yellow (YELLOW) 12/06/23 04:02 Urine Appearance Clear (CLEAR) 12/06/23 04:02 Urine pH 6.5 (5.0 - 8.0) 12/06/23 04:02 Ur Specific [place] 1.010 (1.000-1.030) 12/06/23 04:02 Urine Protein 1+ (NEGATIVE) 12/06/23 04:02 Urine Glucose (UA) Negative (NEGATIVE) 12/06/23 04:02 Urine Ketones Negative (NEGATIVE) 12/06/23 04:02 Urine Blood 5+ (NEGATIVE) 12/06/23 04:02 Urine Nitrite Negative (NEGATIVE) 12/06/23 04:02 Urine Bilirubin Negative (NEGATIVE) 12/06/23 04:02 Urine Urobilinogen Normal (NORMAL) 12/06/23 04:02 Ur Leukocyte Esterase Negative (NEGATIVE) 12/06/23 04:02 Urine RBC 0-2 /HPF (0-3) 12/06/23 04:02 Urine WBC 0-2 /HPF (0-5) 12/06/23 04:02 Ur Squamous Epith Cells Rare /HPF (NEGATIVE) 12/06/23 04:02 Urine Bacteria Negative /HPF (NEGATIVE) 12/06/23 04:02 Ur Culture Indicated? No/not indicated 12/06/23 04:02 Salicylates < 2.8 mg/dL (2.8-20) L 12/05/23 22:28 Urine Opiates Screen Negative (NEG=<300) 12/05/23 21:03 Urine Methadone Screen Negative (NEG=<300) 12/05/23 21:03 Ur Barbiturates Screen Negative (NEG=<200) 12/05/23 21:03 Ur Phencyclidine Scrn Negative (NEG=<25) 12/05/23 21:03 Ur Amphetamines Screen Negative (NEG=<1000) 12/05/23 21:03 U Benzodiazepines Scrn Negative (NEG=<200) 12/05/23 21:03 Urine Cocaine Screen Negative (NEG=<300) 12/05/23 21:03 U Marijuana (THC) Screen Negative (NEG=<50) 12/05/23 21:03 Hepatitis A IgM Ab Negative (Negative) 12/05/23 22:28 Hep Bs Antigen Negative (Negative) 12/05/23 22:28 Hep B Core IgM Ab Negative (Negative) 12/05/23 22:28 Hepatitis C Ab Index <0.02 IV 12/05/23 22:28 Hep C RIBA Interpret Negative (Negative) 12/05/23 22:28 Hepatitis Interpret See note 12/05/23 22:28 Plan (1) Rhabdomyolysis: Status: Acute Qualifiers: Rhabdomyolysis type: non-traumatic Qualified Code(s): M62.82 - Rhabdomyolysis Narrative Support Text: Improving Plan: Lactated Ringer's at 200 cc an hour. Check daily CK levels. Follow LFTs to make sure they normalize. It is known that rhabdomyolysis can cause elevated LFTs especially AST greater than ALT. The patient does demonstrate this during this hospitalization. (2) Elevated liver function tests: Status: Acute Narrative Support Text: Improving daily Plan: Since admission, the patient's LFTs have improved. We will continue to follow them daily until they normalize. I see that the emergency room physician has ordered a hepatitis profile, and we will follow up with the results as well. (3) Hypomagnesemia: Status: Acute
[2023-12-11 06:35] LABS: ALANINE AMINOTRANSFERASE 159 Units/L (12-78); ALBUMIN 3.5 g/dL (3.4-5.0); ALKALINE PHOSPHATASE 38 Units/L (46-116); ASPARTATE AMINO TRANSFERASE 147 Units/L (15-37); BLOOD UREA NITROGEN 8 mg/dL (7-18); CALCIUM 8.9 mg/dL (8.5-10.1); CARBON DIOXIDE 33.4 mmol/L (21-32); CHLORIDE 101 mmol/L (98-107); CREATINE KINASE 5745 Units/L (39-308); CREATININE 1.08 mg/dL (0.70-1.30); GLUCOSE 90 mg/dL (65-99); POTASSIUM 4.3 mmol/L (3.5-5.1); SODIUM 140 mmol/L (136-145); TOTAL PROTEIN 6.7 g/dL (6.4-8.2); eGFR NON BLACK RACES > 60 (>60)
--- NOTE | 2023-12-11 08:39 | PCM.DCPLAN ---
DISCHARGE SUMMARY Admission Date Date of Admission: 12/06/23 Discharge Date Discharge Date: 12/11/23 Admission Diagnoses (1) Rhabdomyolysis: Status: Acute (2) Elevated liver function tests: Status: Acute (3) Hypomagnesemia: Status: Acute Discharge Diagnoses Discharge Diagnosis: 1. Rhabdomyolysis resolving 3. Elevated LFTs improving 3. Hypomagnesemia resolved Discharge Medications Discharge Medications: Home Medication List NK 12/06/23 [History] Prescriptions: Hospital Course Vital Signs: Vital Signs Temperature 97.4 F Pulse Rate [Left Radial] 70 Respiratory Rate 18 Blood Pressure [Left Arm] 103/79 O2 Sat by Pulse Oximetry 98 Latest Lab Results: Laboratory Last Values WBC 6.2 X10^3/uL (3.6-10.0) 12/09/23 05:54 RBC 4.83 X10^6/uL (4.7-6.0) 12/09/23 05:54 Hgb 15.1 g/dL (13.5-18.0) 12/09/23 05:54 Hct 43.0 % (42.0-54.0) 12/09/23 05:54 MCV 89.2 fL (80.0-100.0) 12/09/23 05:54 MCH 31.3 pg (27.0-34.0) 12/09/23 05:54 MCHC 35.1 g/dL (33.0-35.0) H 12/09/23 05:54 RDW 13.5 % (11.6-16.5) 12/09/23 05:54 Plt Count 213 X10^3/uL (150.0-450.0) 12/09/23 05:54 MPV 7.0 fL (7.4-11.0) L 12/09/23 05:54 Neut % (Auto) 53.9 % (42.0-75.0) 12/09/23 05:54 Lymph % (Auto) 33.1 % (21.0-51.0) 12/09/23 05:54 [place] % (Auto) 7.3 % (0.0-13.0) 12/09/23 05:54 Eos % (Auto) 5.0 % (0.9-2.9) H 12/09/23 05:54 Baso % (Auto) 0.7 % (0.2-1.0) 12/09/23 05:54 Neut # (Auto) 3.3 x10^3/uL (2.2-4.8) 12/09/23 05:54 Lymph # (Auto) 2.0 X10^3/uL (1.3-2.9) 12/09/23 05:54 [place] # (Auto) 0.5 x10^3/uL (0.3-0.8) 12/09/23 05:54 Eos # (Auto) 0.3 x10^3/uL (0.0-0.2) H 12/09/23 05:54 Baso # (Auto) 0.0 X10^3/uL (0.0-0.1) 12/09/23 05:54 Absolute Nucleated RBC 0.1 /100WBC 12/09/23 05:54 Sodium 140 mmol/L (136-145) 12/11/23 05:30 Corrected Sodium TNP 12/11/23 05:30 Potassium 4.3 mmol/L (3.5-5.1) 12/11/23 05:30 Chloride 101 mmol/L (98-107) 12/11/23 05:30 Carbon Dioxide 33.4 mmol/L (21-32) H 12/11/23 05:30 BUN 8 mg/dL (7-18) 12/11/23 05:30 Creatinine 1.08 mg/dL (0.70-1.30) 12/11/23 05:30 Est GFR (MDRD) Af Amer > 60 (>60) 12/11/23 05:30 Est GFR (MDRD) Non-Af > 60 (>60) 12/11/23 05:30 Glucose 90 mg/dL (65-99) 12/11/23 05:30 Calcium 8.9 mg/dL (8.5-10.1) 12/11/23 05:30 Corrected Calcium TNP 12/11/23 05:30 Magnesium 2.0 mg/dL (2.0-2.9) 12/08/23 06:10 Total Bilirubin 0.50 mg/dL (0.2-1.0) 12/11/23 05:30 AST 147 Units/L (15-37) H 12/11/23 05:30 ALT 159 Units/L (12-78) H 12/11/23 05:30 Alkaline Phosphatase 38 Units/L (46-116) L 12/11/23 05:30 Creatine Kinase 5745 Units/L (39-308) H 12/11/23 05:30 Total Protein 6.7 g/dL (6.4-8.2) 12/11/23 05:30 Albumin 3.5 g/dL (3.4-5.0) 12/11/23 05:30 Globulin 3.2 g/dL (2.5-4.5) 12/11/23 05:30 Albumin/Globulin Ratio 1.1 Ratio (1.1-2.1) 12/11/23 05:30 Specimen Type Random urine 12/06/23 04:02 Urine Color Pale yellow (YELLOW) 12/06/23 04:02 Urine Appearance Clear (CLEAR) 12/06/23 04:02 Urine pH 6.5 (5.0 - 8.0) 12/06/23 04:02 Ur Specific Outlook 1.010 (1.000-1.030) 12/06/23 04:02 Urine Protein 1+ (NEGATIVE) 12/06/23 04:02 Urine Glucose (UA) Negative (NEGATIVE) 12/06/23 04:02 Urine Ketones Negative (NEGATIVE) 12/06/23 04:02 Urine Blood 5+ (NEGATIVE) 12/06/23 04:02 Urine Nitrite Negative (NEGATIVE) 12/06/23 04:02 Urine Bilirubin Negative (NEGATIVE) 12/06/23 04:02 Urine Urobilinogen Normal (NORMAL) 12/06/23 04:02 Ur Leukocyte Esterase Negative (NEGATIVE) 12/06/23 04:02 Urine RBC 0-2 /HPF (0-3) 12/06/23 04:02 Urine WBC 0-2 /HPF (0-5) 12/06/23 04:02 Ur Squamous Epith Cells Rare /HPF (NEGATIVE) 12/06/23 04:02 Urine Bacteria Negative /HPF (NEGATIVE) 12/06/23 04:02 Ur Culture Indicated? No/not indicated 12/06/23 04:02 Salicylates < 2.8 mg/dL (2.8-20) L 12/05/23 22:28 Urine Opiates Screen Negative (NEG=<300) 12/05/23 21:03 Urine Methadone Screen Negative (NEG=<300) 12/05/23 21:03 Ur Barbiturates Screen Negative (NEG=<200) 12/05/23 21:03 Ur Phencyclidine Scrn Negative (NEG=<25) 12/05/23 21:03 Ur Amphetamines Screen Negative (NEG=<1000) 12/05/23 21:03 U Benzodiazepines Scrn Negative (NEG=<200) 12/05/23 21:03 Urine Cocaine Screen Negative (NEG=<300) 12/05/23 21:03 U Marijuana (THC) Screen Negative (NEG=<50) 12/05/23 21:03 Hepatitis A IgM Ab Negative (Negative) 12/05/23 22:28 Hep Bs Antigen Negative (Negative) 12/05/23 22: Hep B Core IgM Ab Negative (Negative) 12/05/23 22:28 Hepatitis C Ab Index <0.02 IV 12/05/23 22:28 Hep C RIBA Interpret Negative (Negative) 12/05/23 22:28 Hepatitis Interpret See note 12/05/23 22:28 Hospital Course: This is a pleasant 28-year-old white male who presented to the [facility] emergency department last night after he saw that his urine had started turning a light brown in color. He states that he had been working out at the gym earlier in the week or 2 days in a row. He had not worked out previously in 10 years he reports. On December 02, 2023, he worked on his arms for an hour, and the following day, he went back to the gym and worked on his legs for an hour. The patient also states he took whey protein on Saturday and Saturday. The patient reports that the day after he had worked out the second time, his arms started getting sore and looked like they were swelling. He had developed some nausea with hot flashes also. He denied palpitations, weakness, syncope, shortness of breath, and chest pain. He also denies painful urination and burning with urination and abdominal pain. The patient was found to have a CK level just above 91,000. I was called by the ER physician and the patient was discussed with me. We elected to go ahead and admit the patient to the hospital with continued IV fluid hydration for his rhabdomyolysis. This morning's repeat of his CK level shows that he has gone up to over 99,000. We are changing his IV fluid to lactated Ringer's at 200 cc an hour this morning. Repeat a CK level again tomorrow morning. Over the next several days the patient continued to receive lactated Ringer's IV fluid. He is daily LFTs and CK levels decreased until he finally he was low enough today to be discharged home. The patient has had daily improvement of his myalgias in his biceps bilaterally. On the day of discharge his CK level is a little above 5700. His LFTs have continued to come down and are nearly normal. I told him since his CK level is below 10,000 it is safe enough for him to be discharged home today. I encouraged him to drink plenty of water and Gatorade. I told him when he goes back to start working out to make sure that he starts going into it slowly and not to overdo it until he gets his muscle stamina back. We will arrange hospital follow-up with me in a week. The patient does not need any prescription medications at this time. All he needs to do is make sure he drinks plenty of water until I see him again in a week. Discharge disposition patient discharged home today in stable condition. He is going to see me in 1 week.
[2023-12-11 09:39] VITALS: BP 111/70; PULSE 68; RESP 17; TEMP 97.7; O2SAT 96
== END 2023-12-11 10:35 | disposition home or self-care (01) | DRG 558 ==
LOC: ER 20:24 → MED/SURG 12-06 01:30
PROVIDERS: ADMIT Family Medicine; ATTEND Family Medicine
DX: R94.5 Abnormal results of liver function studies; M62.82 Rhabdomyolysis; E83.42 Hypomagnesemia; R74.01 Elevation of levels of liver transaminase levels